=== PATIENT | female | born 1995 ===

== ENCOUNTER 2018-06-30 20:42 | Emergency (ER) | payer MEDICAID, OTHER ==
[2018-06-30 20:43] VITALS: BMI 33.7
[2018-06-30 21:20] VITALS: BP 123/73
[2018-06-30] MEDS ORDERED: Acetaminophen 650mg/20.3ml solution UD PO STA (21:25)
[2018-06-30] MEDS ORDERED: Acetaminophen 650mg/20.3ml solution UD ONE (21:25)
[2018-06-30 22:04] VITALS: PULSE 78; RESP 18; TEMP 101.8; O2SAT 99
[2018-06-30 22:07] LABS: INFLUENZA A B NEGATIVE FOR FLU A/B (NEGATIVE)
--- NOTE | 2018-06-30 22:47 | C.PDOC ---
History Of Present Illness 22 year old fever presents to the ED c/o fever, cough, sore throat, body aches for the past 1 day. Patient states she did not take any OTC medications for her symptoms. Patient denies rash, nausea, vomit, diarrhea, dysuria, hematuria, weakness, numbness. Time Seen by Provider: 06/30/18 21:27 Chief Complaint (Nursing): Flu-like Symptoms History Per: Patient History/Exam Limitations: no limitations Onset/Duration Of Symptoms: Days (1) Current Symptoms Are (Timing): Still Present Location Of Pain: Throat, Sinus/es, Diffuse Myalgias Sick Contacts (Context): None Associated Symptoms: Fever, Cough, Sinus Drainage, Myalgias, Nasal Congestion Ear Symptoms: Bilateral: None Recent travel outside of the [place]: No Additional History Per: Patient Past Medical History Reviewed: Historical Data, Nursing Documentation, Vital Signs Vital Signs: Last Vital Signs Temp 101.8 F H 06/30/18 22:03 Pulse 78 06/30/18 22:03 Resp 18 06/30/18 22:03 BP 123/73 06/30/18 21:15 Pulse Ox 99 06/30/18 22:03 - Medical History PMH: Asthma (mild intermittent) Surgical History: No Surg Hx - [facility] Procedures DELIVERY OF PRODUCTS OF CONCEPTION, EXTERNAL APPROACH (12/22/15) MONITORING OF POC, CARDIAC RATE, [employer] APPROACH (12/22/15) REPAIR PERINEUM SKIN, EXTERNAL APPROACH (12/22/15) Family History: States: Unknown Family Hx - Social History Hx Alcohol Use: No Hx Substance Use: No Review Of Systems Constitutional: Positive for: Fever, Malaise. Negative for: Chills ENT: Positive for: Nose Discharge, Nose Congestion, Throat Pain Cardiovascular: Negative for: Chest Pain Respiratory: Positive for: Cough. Negative for: Shortness of Breath Gastrointestinal: Negative for: Nausea, Vomiting, Abdominal Pain Genitourinary: Negative for: Dysuria Skin: Negative for: Rash Neurological: Negative for: Weakness, Numbness Physical Exam - Physical Exam Appears: Non-toxic, No Acute Distress Skin: Normal Color, Warm, Dry Head: Atraumatic, Normacephalic Eye(s): bilateral: Normal Inspection Ear(s): Bilateral: Normal Oral Mucosa: Moist Throat: Normal, No Erythema, No Exudate Neck: Normal ROM, Supple Chest: Symmetrical Cardiovascular: Rhythm Regular Respiratory: Normal Breath Sounds, No Rales, No Rhonchi, No Wheezing Gastrointestinal/Abdominal: Soft, No Tenderness, No Guarding, No Rebound Extremity: Normal ROM, No Tenderness Neurological/Psych: Oriented x3, Normal Speech, Normal Cognition Gait: Steady ED Course And Treatment O2 Sat by Pulse Oximetry: 99 (ON RA) Pulse Ox Interpretation: Normal Progress Note: Plan: - Tamiflu 75 mg PO. - Tylenol 650 mg PO. - Throat culture. - Influenza A B. - Rapid strep group. Patient is afebrile and is tolerating PO. On reassessment, patient is resting comfortably, and is in no acute distress. Patient was instructed to follow up with physician/clinic in 1-2 days for further evaluation. Disposition Counseled Patient/Family Regarding: Diagnosis, Need For Followup, Rx Given - Disposition Referrals: [facility] [Outside] Disposition: HOME/ ROUTINE Disposition Time: 22:44 Condition: STABLE Additional Instructions: Please follow up with PMD Increase PO fluids Take medications as directed Return to ER if worse Prescriptions: Benzonatate [Tessalon Perles] 200 mg PO TID #14 sgl Ibuprofen [Motrin] 600 mg PO Q6H #30 tab Oseltamivir Cap [Tamiflu] 75 mg PO BID #10 cap Instructions: Flu, Adult (DC) Forms: [facility] (U[place]ayan), Work Excuse - Clinical Impression Clinical Impression: Influenza-like illness - PA / [employer] / Resident Statement MD/DO has reviewed & agrees with the documentation as recorded. - Scribe Statement The provider has reviewed the documentation as recorded by the Scribe Daryl Vizcaino All medical record entries made by the Scribe were at my direction and personally dictated by me. I have reviewed the chart and agree that the record accurately reflects my personal performance of the history, physical exam, medical decision making, and the department course for this patient. I have also personally directed, reviewed, and agree with the discharge instructions and disposition.
== END 2018-06-30 22:53 | disposition home or self-care (01) ==
LOC: C.ER 20:42
DX: J11.1 Influenza due to unidentified influenza virus with other respiratory manifestations (principal)